=== PATIENT | female | born 1995 | race Caucasian/White ===

== ENCOUNTER 2023-12-09 07:54 | Emergency (ER) | payer BC, SELFPAY ==
[2023-12-09 07:58] VITALS: BP 172/104
[2023-12-09 08:28] VITALS: BMI 45.9
--- NOTE | 2023-12-09 08:39 | ED.GENMED ---
History of Present Illness
General
Chief Complaint: Breathing Problem
Source: patient
Time Seen by Provider: 12/09/23 08:22
Travel History
Have you had any contact with someone who has COVID-19?: No
Do you have any symptoms of coronavirus? Fever > 100 degrees, chills, cough, shortness of breath, sore throat, loss of taste or smell, muscle aches, or headache?: Yes
Symptoms:: see triage note
History of Present Illness
History of Present Illness:
28-year-old female with past medical history of asthma presenting to the emergency department for evaluation after she started with cold-like symptoms around 4 weeks ago, over the last 2 weeks has had persistent and lingering cough, difficulty
breathing, wheezing and generally feeling unwell. She notes that she is also right around 8 weeks and has an ultrasound scheduled with her RELIABILITY ENGINEER this coming Tuesday and was a little bit concerned about some abdominal discomfort she has
been having that is exacerbated when coughing. She denies any vaginal bleeding or discharge. She is G4, P2, 1 miscarriage. She denies any chest pain, diaphoresis, sputum production or any other concerns. She notes that she has gone through 2
albuterol inhalers in the last 3 weeks. Also of note, patient states her asthma is typically under control but a typical exacerbation is usually upper respiratory infections.
Past History
Past History
ED Past Medical History: Asthma and Psychiatric (Anxiety)
ED Past Surgical History: Orthopedic
Social History
Tobacco: Non-smoker
Alcohol: None
Drug: None
Personal:
Living: with family
Employment: Employed
Family History
Family History: CAD and Other (Noncontributory)
Review of Systems
Review of Systems
All Other Systems: ROS reviewed and negative except as documented in HPI and ROS
Phy Exam
Physical Exam
Physical Exam:
GENERAL: Alert , in no apparent distress but does appear slightly anxious
EYE: conjunctiva clear
NECK: Supple,
ENT: o/p clr, mmm.
CARDIAC: Borderline tachycardic rate and rhythm, no murmur
LUNGS: Diffuse inspiratory and expiratory wheezing posterior and anterior lung riley, no accessory muscle use, nontachypneic, no rales or rhonchi
NEUROLOGICAL: Alert and oriented
SKIN: Warm and dry, skin intact.
MUSCULOSKELETAL: well perfused.
PSYCH: Normal and appropriate interaction.
Scores
Heart Failure Risk
Heart Failure Risk Score: Not Applicable
Heart Score for Chest Pain Patients
STEMI patient?: Not applicable
Withdrawal Assessment of Alcohol
Withdrawal Assessment Completed?: Not applicable
Course
Orders/Labs/Results
Orders:
Orders
12/09/23 08:29
Albuterol Nebs [Ventolin Nebules] 2.5 mg INH R NOW STA
Ipratropium/Albuterol Sulfate [Duoneb] 3 ml INH R NOW ONE
Prednisone [Deltasone] 50 mg PO NOW STA
12/09/23 08:33
CR Chest - 2 Views Urgent
Comment:
Reason For Exam: persistent cough, URI
Vital Signs
Initial and Last Documented VS:
Initial Vital Signs
Temp Pulse Resp BP Pulse Ox
97.9 F 120 20 172/104 100
12/09/23 07:58 12/09/23 07:58 12/09/23 07:58 12/09/23 07:58 12/09/23 07:58
Last Documented Vital Signs
Temp Pulse Resp BP Pulse Ox
97.9 F 100 15 146/78 100
12/09/23 07:58 12/09/23 09:30 12/09/23 09:30 12/09/23 09:00 12/09/23 09:30
MDM/Problems Addressed
Differential Diagnosis Includes:
Asthma exacerbation, pneumonia, viral etiology
Secondary concern for ectopic although this is very unlikely and I suspect patient's abdominal discomfort is likely coming from a muscular etiology, less concern for spontaneous miscarriage
MDM/Problems Addressed:
28-year-old female presenting the emergency department for evaluation of shortness of breath and lingering cough in the setting of recent upper respiratory infection. Patient has been using her inhaler but has been needing it more frequently and
finished 2 inhalers over the last few weeks. Her exam today does reveal diffuse inspiratory and expiratory wheezing and I suspect asthma exacerbation as the likely cause of her symptoms. Patient has a secondary concern for possible miscarriage
despite lack of symptoms due to history of miscarriage. She has a scheduled ultrasound this coming Tuesday. Ultimately I have less concern for ectopic. I advised the patient that we would be treating her respiratory symptoms first since that is
what she came to the ER with and then we can deal with any related concerns.
Chronic conditions affecting care: Asthma
Acute Exacerbation and/or Progression of Chronic Illness: Asthma
*Radiology
Radiology exam reviewed: preliminary read by ED provider
*Pulse Oximetry
Patient hypoxic: no
*Dental Laboratory Technician Interpretation
Rate: tachycardiac
Rhythm: sinus
*Critical Care Note
Total Time (30-74mins, 75-104mins- exclusive of procedures): Not Applicable
Comment
Comment:
On reevaluation patient's wheezing is fully resolved. She does note significant symptomatic improvement as well. Chest x-ray pending. I did perform a bedside ultrasound which showed a pole and yolk sac/[facility]. I did advise patient that this
was not a diagnostic ultrasound as she is scheduled for this on Tuesday and would not be able to identify any specific complications.
Patient Management
Escalation/DeEscalation of care consider admission/obs:
On third reevaluation patient continues without any wheezing. She remains asymptomatic. Prescription for new albuterol inhaler and prednisone sent to pharmacy. Aware of return precautions. Patient has follow-up scheduled for this coming week
with her OBGYN.
ED Attending Note
-
Portions of this chart may have been created with voice recognition software.� Occasional wrong word or��sound alike� substitutions may have occurred due to the inherent limitations of voice recognition software.
Discharge Plan
Departure
Patient Disposition: Home (Routine Discharge)
Date of Disposition: 12/09/23
Time of Disposition: 11:14
Patient with high blood pressure during this ER visit?: Yes
Discharge Problem:
Asthma, URI (upper respiratory infection)
Instructions: Asthma, Adult (DC)
Prescriptions:
New
prednisone 20 mg tablet
40 mg PO DAILY 4 Days Qty: 8 0RF
albuterol sulfate 90 mcg/actuation HFA aerosol inhaler
2 puff inhalation Q6H PRN (Reason: shortness of breath or wheezing) Qty: 6.7 0RF
No Action
albuterol sulfate 1 PUFF HFA aerosol inhaler
1 puff inhalation R Q4HPRN PRN (Reason: prn)
pren vit comb.1-iron cb-FA-DSS 1 TAB tablet
1 tab PO DAILY
Calcium Adult (calcium phos) 1 EACH tablet,chewable
1 ea PO DAILY
ibuprofen 600 MG tablet
600 mg PO Q4HPRN PRN (Reason: moderate pain/cramps) 0RF
Referrals:
Esthetician/Skin Therapist-Samantha Chase CRNP [Family Provider] -
Interventions
Interventions:
*Risk Screen - Suicide Last Done: 12/09/23 08:28
*General Assessment Last Done: 12/09/23 07:58
*Neglect/Abuse Screening Last Done: 12/09/23 08:28
ED- Fall Risk Assessment Last Done: 12/09/23 08:28
*ED COVID-19 Vaccine History Last Done: 12/09/23 07:58
*Nursing Disposition Last Done: 12/09/23 11:22
ED- Cardiac Assessment Last Done: 12/09/23 08:28
ED- Pulmonary Assessment Last Done: 12/09/23 08:28
Discharge Date and Time
Discharge Date/Time: 12/09/23 11:22
[2023-12-09] MEDS: DELTASONE 50 MG PO (08:40)
[2023-12-09] MEDS: DUONEB 3 ML INH (08:40)
[2023-12-09] MEDS: VENTOLIN NEBULES 2.5 MG INH (08:40)
[2023-12-09 08:43] VITALS: BP 148/97
[2023-12-09 09:00] VITALS: BP 146/78
== END 2023-12-09 11:22 | disposition home or self-care (01) ==
LOC: EMR 07:54
PROVIDERS: EMERGENCY PHYSICIAN Emergency Medicine; FAMILY PHYSICIAN Nurse Practitioner Family
DX: O99.511 Diseases of the respiratory system complicating pregnancy, first trimester (principal); J45.901 Unspecified asthma with (acute) exacerbation; J06.9 Acute upper respiratory infection, unspecified; R03.0 Elevated blood-pressure reading, without diagnosis of hypertension; Z3A.08 8 weeks gestation of pregnancy
CPT/HCPCS: 99284; 94640; 71046

== ENCOUNTER 2024-01-07 07:35 | Emergency (ER) | payer BC, SELFPAY ==
[2024-01-07 07:42] VITALS: BP 159/99
--- NOTE | 2024-01-07 09:10 | ED.GENMED ---
History of Present Illness
General
Chief Complaint: Problems
Time Seen by Provider: 01/07/24 09:04
Travel History
Have you had any contact with someone who has COVID-19?: No
Do you have any symptoms of coronavirus? Fever > 100 degrees, chills, cough, shortness of breath, sore throat, loss of taste or smell, muscle aches, or headache?: No
History of Present Illness
History of Present Illness:
28-year-old female, currently 12 weeks gestational age, presents the emergency department for evaluation of a heavy 'domínguez' of vaginal bleeding and cramping that developed earlier this morning. Symptoms have since subsided. Denies any
associated fever, chills, sweats, nausea, vomiting, or urinary tract voiding symptoms. 1 prior first trimester miscarriage, 2 living children, uncomplicated pregnancies. Does not take any blood thinners. Did have confirmatory ultrasound several
weeks ago
Past History
Past History
ED Past Medical History: Asthma and Psychiatric (Anxiety)
ED Past Surgical History: Orthopedic
Social History
Tobacco: Non-smoker
Alcohol: None
Drug: None
Personal:
Living: with family
Employment: Employed
Family History
Family History: CAD and Other (Noncontributory)
Review of Systems
Review of Systems
Allergies reviewed?: Yes
All Other Systems: ROS reviewed and negative except as documented in HPI and ROS
Phy Exam
Physical Exam
Physical Exam:
GEN: Well appearing, NAD, WDWN
HEENT: Oral mucosa moist, no scleral icterus
Cardiac: Regular rate
Lung: No respiratory distress, no tachypnea
MSK: No gross deformity or injuries
Skin: Good color, no pallor or jaundice, no rashes
Neuro: AO x3, moves all extremities freely
Psych: Calm, cooperative
Course
Orders/Labs/Results
Orders:
Orders
01/07/24 09:09
US 1st Trimester Urgent
Reason For Exam: 1st trimester bleeding
01/07/24 09:11
Beta HCG Quantitative Urgent
Is this a screen?: No
Complete Blood Count/With Diff Urgent
Comprehensive Metabolic Panel Urgent
Abnormal Lab Results
01/07/24
09:11
WBC 11.2 H 10^3/uL
(4.8-10.8)
MCV 77.2 L fL
(81.0-99.0)
MCH 26.3 L pg
(27.0-31.0)
RDW 14.9 H %
(11.5-14.5)
Absolute Neuts (auto) 7.8 H 10^3/uL
(1.4-6.5)
Lymphocytes % 19.5 L %
(20.5-51.1)
Carbon Dioxide 21 L mmol/L
(22-30)
Creatinine 0.5 L mg/dL
(0.6-1.0)
01/07/24 09:11
01/07/24 09:11
Vital Signs
Initial and Last Documented VS:
Initial Vital Signs
Temp Pulse Resp BP Pulse Ox
98.5 F 116 16 159/99 99
01/07/24 07:42 01/07/24 07:42 01/07/24 07:42 01/07/24 07:42 01/07/24 07:42
Last Documented Vital Signs
Temp Pulse Resp BP Pulse Ox
97.9 F 105 18 143/89 98
01/07/24 12:57 01/07/24 12:57 01/07/24 12:57 01/07/24 12:57 01/07/24 12:57
Information
Weeks gestation: Weeks: (12)
Location: Location: ([facility])
MDM/Problems Addressed
MDM/Problems Addressed:
Ultrasound is unremarkable, good heart tones and live viable is identified. Given that there are no alternative etiologies to bleeding such as a subchorionic hemorrhage, cannot definitively rule out an impending miscarriage at this time.
She is Rh+ historically thus will not need RhoGAM. Outpatient OBGYN follow-up is advised
*Critical Care Note
Total Time (30-74mins, 75-104mins- exclusive of procedures): Not Applicable
ED Attending Note
-
Portions of this chart may have been created with voice recognition software.� Occasional wrong word or��sound alike� substitutions may have occurred due to the inherent limitations of voice recognition software.
Discharge Plan
Departure
Patient Disposition: Home (Routine Discharge)
Date of Disposition: 01/07/24
Time of Disposition: 12:23
Patient with high blood pressure during this ER visit?: No
Discharge Problem:
Miscarriage, threatened, early
Instructions: Threatened Miscarriage (DC)
Prescriptions:
No Action
albuterol sulfate 1 PUFF HFA aerosol inhaler
1 puff inhalation R Q4HPRN PRN (Reason: prn)
pren vit comb.1-iron cb-FA-DSS 1 TAB tablet
1 tab PO DAILY
Calcium Adult (calcium phos) 1 EACH tablet,chewable
1 ea PO DAILY
ibuprofen 600 MG tablet
600 mg PO Q4HPRN PRN (Reason: moderate pain/cramps) 0RF
prednisone 20 mg tablet
40 mg PO DAILY 4 Days Qty: 8 0RF
albuterol sulfate 90 mcg/actuation HFA aerosol inhaler
2 puff inhalation Q6H PRN (Reason: shortness of breath or wheezing) Qty: 6.7 0RF
Referrals:
Tierney York DO [Active] - Call in 1-3 days for appt
Daja Woo CRNP [Family Provider] -
Interventions
Interventions:
*Risk Screen - Suicide Last Done: 01/07/24 07:42
*General Assessment Last Done: 01/07/24 07:42
*Neglect/Abuse Screening Last Done: 01/07/24 07:42
*ED COVID-19 Vaccine History Last Done: 01/07/24 12:52
*Nursing Disposition Last Done: 01/07/24 12:57
ED-Female Genitourinary Assessment Last Done: 01/07/24 12:55
[2024-01-07 09:19] LABS: % Basophils 0.8 % (0-2); % Eosinophils 4.9 % (0-6); % Immature Granulocytes 0.4 % (0-0.5); % Lymphocytes 19.5 % (20.5-51.1); % Monocytes 4.3 % (1.7-9.3); % Neutrophils 70.1 % (42.2-75.2); Absolute Basophils 0.1 10^3/uL (0-0.2); Absolute Eosinophils 0.6 10^3/uL (0-0.7); Absolute Lymphocytes 2.2 10^3/uL (1.2-3.4); Absolute Monocytes 0.5 10^3/uL (0.1-0.6); Absolute Neutrophils 7.8 10^3/uL (1.4-6.5); Hematocrit 37.5 % (37.0-47.0); Hemoglobin 12.8 g/dL (12.0-16.0); Mean Corp Hgb Conc. 34.1 g/dL (33.0-37.0); Mean Corpuscular Hgb 26.3 pg (27.0-31.0); Mean Corpuscular Volume 77.2 fL (81.0-99.0); Mean Platelet Volume 10.1 fL (7.4-10.4); Nucleated Red Blood Cells % 0 %; Platelet Count 349 10^3/uL (130-400); Red Blood Cell Count 4.86 10^6/uL (4.20-5.40); Red Cell Dist. Width 14.9 % (11.5-14.5); White Blood Cell Count 11.2 10^3/uL (4.8-10.8)
[2024-01-07 09:33] LABS: ALT (SGPT) 14 U/L (0-35); AST (SGOT) 18 U/L (14-36); Albumin 3.8 g/dl (3.5-5.0); Alkaline Phosphatase 89 U/L (38-126); Blood Urea Nitrogen 7 mg/dl (7-17); Calcium 8.8 mg/dl (8.4-10.2); Carbon Dioxide 21 mmol/L (22-30); Chloride 107 mmol/L (98-107); Glucose 97 mg/dl (70-99); Potassium 4.2 mmol/L (3.5-5.1); Sodium 135 mmol/L (135-145); Total Bilirubin 0.5 mg/dl (0.2-1.3); Total Protein 6.8 g/dl (6.3-8.2); eGFR > 60.00
[2024-01-07 12:57] VITALS: BP 143/89
== END 2024-01-07 12:57 | disposition home or self-care (01) ==
LOC: EMR 07:35
PROVIDERS: Physician Assistant; EMERGENCY PHYSICIAN Emergency Medicine; FAMILY PHYSICIAN Nurse Practitioner Primary Care
DX: O20.0 Threatened abortion (principal); O20.9 Hemorrhage in early pregnancy, unspecified; Z3A.11 11 weeks gestation of pregnancy
CPT/HCPCS: 99284; 76801; 80053; 84702; 85025

== ENCOUNTER → 2024-01-09 10:35 | Outpatient (REF) | payer BC, SELFPAY | LOC: PNTC 10:35 | PROVIDERS: ATTENDING PHYSICIAN Obstetrics & Gynecology | DX: Z36.0 Encounter for antenatal screening for chromosomal anomalies (principal); Z36.82 Encounter for antenatal screening for nuchal translucency | CPT/HCPCS: 76801; 76813 ==

== ENCOUNTER → 2024-02-06 14:33 | Outpatient (REF) | payer BC, SELFPAY | LOC: PNTC 14:33 | PROVIDERS: ATTENDING PHYSICIAN Obstetrics & Gynecology | DX: O99.210 Obesity complicating pregnancy, unspecified trimester (principal) | CPT/HCPCS: 76805 ==

== ENCOUNTER → 2024-03-05 14:39 | Outpatient (REF) | payer BC, SELFPAY | LOC: PNTC 14:39 | PROVIDERS: ATTENDING PHYSICIAN Obstetrics & Gynecology | DX: O99.210 Obesity complicating pregnancy, unspecified trimester (principal) | CPT/HCPCS: 76811 ==

== ENCOUNTER → 2024-04-02 14:43 | Outpatient (REF) | payer BC, SELFPAY | LOC: PNTC 14:43 | PROVIDERS: ATTENDING PHYSICIAN Obstetrics & Gynecology | DX: O99.210 Obesity complicating pregnancy, unspecified trimester (principal) | CPT/HCPCS: 76816 ==

== ENCOUNTER → 2024-04-30 14:42 | Outpatient (REF) | payer OTHER, SELFPAY | LOC: PNTC 14:42 | PROVIDERS: ATTENDING PHYSICIAN Obstetrics & Gynecology | DX: O99.210 Obesity complicating pregnancy, unspecified trimester (principal) | CPT/HCPCS: 76816 ==

== ENCOUNTER 2024-05-23 17:14 | Observation (INO) | payer OTHER, SELFPAY ==
[2024-05-23 17:39] VITALS: BP 120/68
[2024-05-23 18:16] LABS: Hematocrit 35.4 % (37.0-47.0); Hemoglobin 12.3 g/dL (12.0-16.0); Mean Corp Hgb Conc. 34.7 g/dL (33.0-37.0); Mean Corpuscular Hgb 27.8 pg (27.0-31.0); Mean Corpuscular Volume 80.1 fL (81.0-99.0); Platelet Count 325 10^3/uL (130-400); Red Blood Cell Count 4.42 10^6/uL (4.20-5.40); Red Cell Dist. Width 14.5 % (11.5-14.5); White Blood Cell Count 12.9 10^3/uL (4.8-10.8)
[2024-05-23 18:17] LABS: Urine Albumin Negative (Neg - Trace); Urine Bilirubin Negative (Negative); Urine Character Slightly Cloudy (Clear); Urine Color Yellow; Urine Glucose Negative (Negative); Urine Ketone Negative (Negative); Urine Leukocyte 1+ (Negative); Urine Nitrite Negative (Negative); Urine Occult Blood Trace (Negative); Urine Urobilinogen Negative (Neg - 1+)
[2024-05-23 18:32] LABS: Urine Red Blood Cell 0-2 /HPF (0-2); Urine Yeast Moderate (Negative)
[2024-05-23 18:36] LABS: ALT (SGPT) 14 U/L (0-35); AST (SGOT) 18 U/L (14-36); Albumin 3.6 g/dl (3.5-5.0); Alkaline Phosphatase 128 U/L (38-126); Blood Urea Nitrogen 8 mg/dl (7-17); Calcium 9.3 mg/dl (8.4-10.2); Carbon Dioxide 22 mmol/L (22-30); Chloride 107 mmol/L (98-107); Glucose 81 mg/dl (70-99); Potassium 4.4 mmol/L (3.5-5.1); Sodium 136 mmol/L (135-145); Total Bilirubin 0.3 mg/dl (0.2-1.3); Total Protein 6.4 g/dl (6.3-8.2); Uric Acid 3.8 mg/dl (2.5-6.2); eGFR > 60.00
[2024-05-23 18:36] LABS: Protein/creatinine Ratio 0.1; Urine Protein 10 mg/dl
== END 2024-05-23 19:21 | disposition home or self-care (01) ==
LOC: LDRP 17:14
PROVIDERS: ADMITTING PHYSICIAN Obstetrics & Gynecology
DX: O13.3 Gestational [pregnancy-induced] hypertension without significant proteinuria, third trimester (principal); R22.42 Localized swelling, mass and lump, left lower limb; J45.909 Unspecified asthma, uncomplicated; O99.513 Diseases of the respiratory system complicating pregnancy, third trimester; Z3A.31 31 weeks gestation of pregnancy; R51.9 Headache, unspecified; O99.213 Obesity complicating pregnancy, third trimester; O98.313 Other infections with a predominantly sexual mode of transmission complicating pregnancy, third trimester; A56.8 Sexually transmitted chlamydial infection of other sites
CPT/HCPCS: 59025; 80053; 81003; 81015; 82570; 84156; 84550; 85027; 87086; G0378

== ENCOUNTER 2024-05-25 18:48 | Observation (INO) | payer OTHER, SELFPAY ==
[2024-05-25 19:08] VITALS: BP 113/73; BMI 46.6
== END 2024-05-25 19:58 | disposition home or self-care (01) ==
LOC: LDRP 18:48
PROVIDERS: ADMITTING PHYSICIAN Obstetrics & Gynecology; FAMILY PHYSICIAN Obstetrics & Gynecology
DX: O47.03 False labor before 37 completed weeks of gestation, third trimester (principal); Z3A.31 31 weeks gestation of pregnancy; O99.343 Other mental disorders complicating pregnancy, third trimester; F41.9 Anxiety disorder, unspecified
CPT/HCPCS: G0378

== ENCOUNTER → 2024-05-28 14:43 | Outpatient (REF) | payer OTHER, SELFPAY | LOC: PNTC 14:43 | PROVIDERS: ATTENDING PHYSICIAN Obstetrics & Gynecology | DX: O99.210 Obesity complicating pregnancy, unspecified trimester (principal) | CPT/HCPCS: 76816 ==

== ENCOUNTER 2024-06-11 17:40 | Inpatient (IN) | payer OTHER, SELFPAY ==
[2024-06-11 15:54] VITALS: BP 134/75; BMI 44.9
[2024-06-11 16:33] LABS: Protein/creatinine Ratio 0.1; Urine Protein 8 mg/dl
[2024-06-11 16:59] LABS: ALT (SGPT) 72 U/L (0-35); AST (SGOT) 104 U/L (14-36); Albumin 3.5 g/dl (3.5-5.0); Alkaline Phosphatase 185 U/L (38-126); Blood Urea Nitrogen 6 mg/dl (7-17); Calcium 9.1 mg/dl (8.4-10.2); Carbon Dioxide 18 mmol/L (22-30); Chloride 106 mmol/L (98-107); Estimated Creatinine Clearance > 125 ml/min; Glucose 84 mg/dl (70-99); Potassium 4.2 mmol/L (3.5-5.1); Sodium 137 mmol/L (135-145); Total Bilirubin 2.6 mg/dl (0.2-1.3); Total Protein 6.3 g/dl (6.3-8.2); eGFR > 60.00
[2024-06-11 17:20] LABS: Hematocrit 35.4 % (37.0-47.0); Hemoglobin 12.3 g/dL (12.0-16.0); Mean Corp Hgb Conc. 34.7 g/dL (33.0-37.0); Mean Corpuscular Hgb 28.1 pg (27.0-31.0); Mean Platelet Volume 10.2 fL (7.4-10.4); Platelet Count 316 10^3/uL (130-400); Red Blood Cell Count 4.37 10^6/uL (4.20-5.40); Red Cell Dist. Width 14.1 % (11.5-14.5); White Blood Cell Count 11.7 10^3/uL (4.8-10.8)
[2024-06-11 17:47] VITALS: BP 138/82; BMI 49.8
[2024-06-11] MEDS: CELESTONE SOLUSPAN 2 MG IM (19:36)
[2024-06-11] MEDS: MAGNESIUM SULFATE 100 IV (19:40)
[2024-06-11] MEDS: LR 1000 IV (19:40)
[2024-06-11] MEDS: CYTOTEC 25 MICROGRAM VAG (19:45)
[2024-06-11] MEDS: MAGNESIUM SULFATE 40 GRAM 1000 IV (20:01)
--- NOTE | 2024-06-11 22:00 | CON.NEO ---
Consultation
-
Date/Time Consultation Requested: 06/11 2030
Date/Time Consultation Performed: 06/11 2200
Requesting Provider: Dr Rucker
Performing Provider: Dr Pearson
Reason for Consultation: induction at 34 wks
Consultation - Neonatology
Maternal Labs
Blood Type: A Positive
Antibody Screen: Negative
RPR: Nonreactive
Rubella: Immune
Hep B S Ag: Negative
Hep C: Negative
HIV: Nonreactive
Group B Strep: Unknown
Chlamydia/GC: Other (chlam positive 12/10 with negative FLORY 01/07)
Consult
mom 28 year old with previous term pregnancies without any complications. This significant for elevated BP , seen couple wks ago with borderline elevated BP . today went to for regular check up and noted to have elevated LFTs
and BP admitted with diagnosis of PIH with severe features. Induction started with cytotec . Mom is receiving Mag infusion for elevated BP. has received one dose of Beta on admission to be followed with second dose. have requested to give in 12 hrs
instead 24 hr
Points discussed at consult:
- Management at delivery including the possibility of CPAP/intubation/surfactant discussed
- Respiratory: RDS possibility with possibility of worsening for 24-48 hrs, management including CPAP/surfactant/ventilator support may be required
- Nutrition: Hypoglycemia, need for IV fluids, gradual feed advance, Gavage feeding, importance of colostrum feeding, initiation of expression of colostrum within 3-4 hours, availability of donor milk, safety fo donor milk etc. were discussed.
Fortification with pros and Cons discussed with the family. at 34 wks likely smith of requiring 22 calories .
- Procedures: Intubation, CPAP, IV placement, blood tests, umbilical arterial or venous lines, gavage feedings were discussed
- CVS: possibility of PDA not discussed in detail at this time
- MEN'S GARMENT FITTER: Rare possibility of IVH and need for head US, grading of IVH and intermodal dispatcher effects of Grade III/IV although extremely rare at >32 weeks were discussed
- Jaundice possibility and need for phototherapy discussed
- Family Centered Care: Discussed FCC with emphasis on parental participation during sign off and during management rounds and is encouraged. Availability of tito eyes camera also discussed
-
Mom and Dad were given the opportunity to ask questions throughout and open invitation to call if any questions come as they absorb all the information given so far.
Face to Face Time
Total Zdox-is-Qgnk Time (in Minutes): 45 min
Truck Rental Service Attendant
[2024-06-12] MEDS: CYTOTEC 50 MICROGRAM PO ×3 (00:25→08:00)
[2024-06-12 00:51] LABS: Hematocrit 35.4 % (37.0-47.0); Hemoglobin 12.2 g/dL (12.0-16.0); Mean Corp Hgb Conc. 34.5 g/dL (33.0-37.0); Mean Corpuscular Volume 81.2 fL (81.0-99.0); Mean Platelet Volume 10.7 fL (7.4-10.4); Platelet Count 318 10^3/uL (130-400); Red Blood Cell Count 4.36 10^6/uL (4.20-5.40); Red Cell Dist. Width 14.2 % (11.5-14.5)
[2024-06-12 00:54] LABS: ALT (SGPT) 82 U/L (0-35); AST (SGOT) 118 U/L (14-36); Albumin 3.1 g/dl (3.5-5.0); Alkaline Phosphatase 214 U/L (38-126); Blood Urea Nitrogen 6 mg/dl (7-17); Calcium 7.6 mg/dl (8.4-10.2); Carbon Dioxide 19 mmol/L (22-30); Chloride 108 mmol/L (98-107); Estimated Creatinine Clearance > 125 ml/min; Glucose 141 mg/dl (70-99); INR 1.05; PT 13.6 Sec (11.4-14.6); Potassium 4.1 mmol/L (3.5-5.1); Sodium 138 mmol/L (135-145); Total Bilirubin 1.6 mg/dl (0.2-1.3); Total Protein 5.8 g/dl (6.3-8.2); eGFR > 60.00
[2024-06-12 00:55] LABS: APTT 27.9 Sec (23.4-35.0)
[2024-06-12] MEDS: PENICILLIN 110 UNITS IV (03:23)
[2024-06-12] MEDS: LR 1000 IV ×2 (07:00→21:05)
[2024-06-12] MEDS: PENICILLIN 55 UNITS IV ×3 (07:20→15:35)
[2024-06-12] MEDS: FENTANYL/BUPIVACAINE 100 EPIDURAL (07:21)
[2024-06-12] MEDS: PRENATAL PLUS 1 TABLET PO (08:00)
[2024-06-12] MEDS: CELESTONE SOLUSPAN 2 MG IM (08:03)
[2024-06-12 08:26] LABS: Hematocrit 35.5 % (37.0-47.0); Hemoglobin 12.5 g/dL (12.0-16.0); Mean Corp Hgb Conc. 35.2 g/dL (33.0-37.0); Mean Corpuscular Volume 79.6 fL (81.0-99.0); Mean Platelet Volume 10.5 fL (7.4-10.4); Platelet Count 341 10^3/uL (130-400); Red Blood Cell Count 4.46 10^6/uL (4.20-5.40); Red Cell Dist. Width 14.4 % (11.5-14.5); White Blood Cell Count 13.4 10^3/uL (4.8-10.8)
[2024-06-12 08:59] LABS: ALT (SGPT) 85 U/L (0-35); AST (SGOT) 93 U/L (14-36); Albumin 3.5 g/dl (3.5-5.0); Alkaline Phosphatase 227 U/L (38-126); Blood Urea Nitrogen 6 mg/dl (7-17); Calcium 7.8 mg/dl (8.4-10.2); Carbon Dioxide 15 mmol/L (22-30); Chloride 105 mmol/L (98-107); Estimated Creatinine Clearance > 125 ml/min; Glucose 128 mg/dl (70-99); Magnesium 5.1 mg/dl (1.6-2.3); Potassium 4.5 mmol/L (3.5-5.1); Sodium 134 mmol/L (135-145); Total Protein 6.3 g/dl (6.3-8.2); eGFR > 60.00
[2024-06-12] MEDS: CYTOTEC PO ×2 (12:00→15:37)
[2024-06-12] MEDS: PITOCIN 30 UNITS/NSS 500 ML IV ×2 (12:15→19:11)
[2024-06-12] MEDS: MAGNESIUM SULFATE 40 GRAM 1000 IV (13:53)
[2024-06-12] MEDS: MOTRIN 600 MG PO (20:27)
[2024-06-12] MEDS: MAGNESIUM SULFATE 40 GRAM IV (21:09)
[2024-06-12] MEDS: LR IV (21:11)
[2024-06-13] MEDS: TYLENOL 650 MG PO ×5 (01:26→22:19)
[2024-06-13] MEDS: MOTRIN 600 MG PO ×4 (03:20→22:18)
[2024-06-13] MEDS: SENOKOT-S 1 TABLET PO (05:42)
[2024-06-13] MEDS: ProAIR HFA INHALER 2 PUFF INH (06:00)
[2024-06-13 06:17] LABS: Hematocrit 30.9 % (37.0-47.0); Hemoglobin 10.7 g/dL (12.0-16.0); Mean Corp Hgb Conc. 34.6 g/dL (33.0-37.0); Mean Corpuscular Hgb 27.4 pg (27.0-31.0); Mean Platelet Volume 10.3 fL (7.4-10.4); Platelet Count 328 10^3/uL (130-400); Red Blood Cell Count 3.91 10^6/uL (4.20-5.40); Red Cell Dist. Width 14.7 % (11.5-14.5); White Blood Cell Count 19.9 10^3/uL (4.8-10.8)
[2024-06-13 07:04] LABS: ALT (SGPT) 68 U/L (0-35); AST (SGOT) 52 U/L (14-36); Alkaline Phosphatase 172 U/L (38-126); Blood Urea Nitrogen 9 mg/dl (7-17); Calcium 6.9 mg/dl (8.4-10.2); Carbon Dioxide 18 mmol/L (22-30); Chloride 106 mmol/L (98-107); Estimated Creatinine Clearance > 125 ml/min; Glucose 131 mg/dl (70-99); Magnesium 6.1 mg/dl (1.6-2.3); Potassium 4.3 mmol/L (3.5-5.1); Sodium 135 mmol/L (135-145); Total Bilirubin 0.5 mg/dl (0.2-1.3); Total Protein 5.5 g/dl (6.3-8.2); eGFR > 60.00
[2024-06-13] MEDS: PRENATAL PLUS 1 TABLET PO (08:28)
[2024-06-13] MEDS: MAGNESIUM SULFATE 40 GRAM 1000 IV (08:54)
[2024-06-13] MEDS: LR 1000 IV (11:55)
[2024-06-14 03:51] LABS: Hematocrit 30.9 % (37.0-47.0); Hemoglobin 10.5 g/dL (12.0-16.0); Mean Corpuscular Hgb 27.4 pg (27.0-31.0); Mean Corpuscular Volume 80.7 fL (81.0-99.0); Mean Platelet Volume 10.2 fL (7.4-10.4); Platelet Count 304 10^3/uL (130-400); Red Blood Cell Count 3.83 10^6/uL (4.20-5.40); White Blood Cell Count 13.4 10^3/uL (4.8-10.8)
[2024-06-14 04:15] LABS: ALT (SGPT) 47 U/L (0-35); AST (SGOT) 25 U/L (14-36); Albumin 2.9 g/dl (3.5-5.0); Alkaline Phosphatase 132 U/L (38-126); Blood Urea Nitrogen 11 mg/dl (7-17); Calcium 7.9 mg/dl (8.4-10.2); Carbon Dioxide 23 mmol/L (22-30); Chloride 109 mmol/L (98-107); Estimated Creatinine Clearance > 125 ml/min; Glucose 101 mg/dl (70-99); Potassium 4.2 mmol/L (3.5-5.1); Sodium 141 mmol/L (135-145); Total Bilirubin 0.3 mg/dl (0.2-1.3); Total Protein 5.5 g/dl (6.3-8.2); eGFR > 60.00
[2024-06-14] MEDS: MOTRIN 600 MG PO ×3 (04:18→19:59)
[2024-06-14] MEDS: TYLENOL 650 MG PO ×3 (04:18→20:00)
[2024-06-14] MEDS: PRENATAL PLUS 1 TABLET PO (07:54)
[2024-06-14] MEDS: SENOKOT-S 1 TABLET PO (07:54)
--- NOTE | 2024-06-14 08:06 | CON.NEURO4 ---
Addendum entered and electronically signed by Raeann Garcia DO 06/14/24 18:36:
Studies reviewed.
I have personally examined the patient. I agree with the PHARMACY COORDINATOR's Note.
My addenda: 28 year-old female with bifrontal and bitemporal headache with pulsatile tinnitus after epidural attempt with dural puncture; headache just after giving . It was severe and debilitating. I saw her after her blood patch and her
headache is now nearly resolved, '<10.' Exam is nonfocal. MRI brain c/w spontaneous intracranial hypotension; MRI/MRV otherwise negative. Continue Tylenol/Motrin PRN, IVF. Neurology is signing off. Please call with further questions.
Original Note:
Consultation - Neurology 4
-
CONSULTING PHYSICIAN: Raeann Garcia DO
REFERRING PHYSICIAN: DIRECTOR OF STAFF DEVELOPMENT/Dr. York
DICTATED BY: CARMEN Smith
DATE/TIME OF REQUEST: 06/14/24
DATE/TIME OF CONSULTATION: 06/14/24
Reason for Consultation: Headache
History of Present Illness:
This is a 28-year-old left-handed PPD2 female who has presented to the hospital on 06/11/24 for induction due to pre-eclampsia with elevated liver enzymes. Epidural attempt was made two mornings ago on 06/12/24, dura was punctured on the first
attempt, so intrathecal cath was utilized. That night (06/12/24) patient reports developing a headache behind bilateral eyes that that transitioned to bitemporal and radiated down both sides of her neck. Initially her headache was a 2-3/10 but
progressed to a 7-8/10. She also reports hearing a 'whooshing' sound in bilateral ears and hearing was muffled. She notes photophobia but no overt phonophobia, nausea, or vomiting. Sometimes after sleeping she would wake up and notice relief of her
headache, but this was not consistent. She denies noticing any worsening of her headache with being upright. MRI brain was obtained this morning and is suggestive of intracranial hypotension. Patient received a blood patch in IR later this morning
and reports a significant improvement in her symptoms since the procedure. Currently, her discomfort is a 4/10. She is now sitting up, eating, and conversant which her sister says is a drastic improvement from earlier today. Patient's blood pressure
has been well-controlled since delivery. She completed a magnesium infusion last evening.
She does report a history of migraine headaches without aura in her teenage years, not associated with her menses. She used to take Excedrin migraine with relief of her symptoms. She has never seen a neurologist or taken any prescription migraine
medications. Her migraines spontaneously resolved in her 20's. She does not having mild headaches during her once she was diagnosed with preeclampsia, but those headaches were very different from her headache this week. She also notes head
trauma at work twice in the past. With each event she was bending over and stood up, hitting the back of her head on a metal object. The first event was in 2011 and she notes having a mild concussion symptoms. She had a CT head at at that time
that was unremarkable. The second episode of hitting her head was in the past couple of years and she did not have any concussion symptoms associated with that event.
Past Medical History: Migraine without aura in her teens, anxiety, depression, asthma, obesity
Surgical History: Carpal tunnel release right side
Family History: Sister- migraines
Social History: Denies tobacco, alcohol, and illicit drug use.
Allergies: No known allergies.
Home Medications: See below.
Review of Symptoms:
Patient denies any fever, headache, chest pain, shortness of breath, GI or symptoms.
�Per the HPI.�All systems are reviewed negative except above.
Physical Exam:
The patient is afebrile, abdomen is nondistended, breathing is unlabored, skin is warm and dry, no edema.
Neurologic Examination:
The patient is awake, alert and oriented x 3. She is able to follow commands and answer questions appropriately. There is no aphasia or dysarthria. On cranial nerve assessment, pupils are 3 mm bilateral, round and reactive to light and
accommodation. Visual riley are full. Extraocular movements are intact. Facial sensations are intact and bilaterally symmetrical, there is no facial asymmetry. Hearing is intact bilaterally to normal conversation volume. Tongue palate and uvula are
midline. Sternocleidomastoid strengths are full bilaterally. Motor strengths are 5/5 bilateral upper and lower extremities on medical research S[place]lin scale. There is no drift or involuntary movement noted. Deep tendon reflexes are 1+ bilateral
upper and lower extremities and Babinski is absent bilaterally. Sensations of touch, temperature and vibration are intact and bilaterally symmetrical. There was no extinction noted on double simultaneous stimulation. Coordination is intact by finger
to nose bilaterally.
Lab Results: See below.
Neuro Imaging:
1. MRI Brain 06/14/24: MR imaging features suggesting spontaneous intracranial hypotension in the proper clinical setting. Pertinent negatives include absence of imaging features to suggest other post headache etiologies, such as cerebral or
dural venous thrombosis, segmental vasoconstriction of the cerebral arteries ( reversible cerebral vasoconstriction syndrome), or posterior reversible encephalopathy syndrome (PRES).
2. MRA head/neck 06/14/24: No significant carotid plaque formation or hemodynamically significant stenosis, bilaterally. No occlusion or dissection.
Differentials for the patient's presentation include:
1. Intractable headache likely due to intracranial hypotension in the setting of punctured dura during epidural attempt. Symptoms improving after blood patch procedure.
2. MRA/MRI brain negative for hemorrhage and venous sinus thrombosis.
Patient has the following risk factors for their symptoms: Recent epidural, recent , PIH
Recommendations:
-Supportive care; encourage fluids, PRN Tylenol, daily caffeine, rest.
-Symptoms should gradually improve over the next few days.
Discussed patient care with: Dr. Garcia, the patient
Vital Signs and Labs
-
Vital Signs and Labs:
Vital Signs
Temp Pulse Resp BP
99.1 F 106 20 138/82
06/11/24 17:47 06/11/24 19:20 06/11/24 19:20 06/11/24 17:47
Lab Results
06/14/24 03:42
06/14/24 03:42
PT 13.6 Sec (11.4-14.6) 06/12/24 00:21
INR 1.05 06/12/24 00:21
APTT 27.9 Sec (23.4-35.0) 06/12/24 00:21
Sodium 141 mmol/L (135-145) 06/14/24 03:42
Potassium 4.2 mmol/L (3.5-5.1) 06/14/24 03:42
BUN 11 mg/dl (7-17) 06/14/24 03:42
Glucose 101 mg/dl (70-99) H 06/14/24 03:42
Calcium 7.9 mg/dl (8.4-10.2) L 06/14/24 03:42
Medications
-
Active Medications
Generic Name Dose Route Start Last Admin
Trade Name Freq PRN Reason Stop Dose Admin
Acetaminophen 650 mg 06/12/24 19:51 06/14/24 04:18
Acetaminophen 325 Mg Tablet PO 07/10/24 19:50 650 mg
Q4HPRN PRN Administration
mild pain
Albuterol 2 puff 06/11/24 18:57 06/13/24 06:00
Albuterol Hfa [90 Mcg/Dose] Inhaler INH 2 puff
R Q6HPRN PRN Administration
shortness of breath or wheezin
Protocol
Calcium Carbonate 2 tablet 06/12/24 19:51
Calcium Carbonate 500 Mg (Regular-Strength) Chew Tablet PO 07/10/24 19:50
Q6HPRN PRN
indigestion
Calcium Gluconate 1,000 mg 06/11/24 18:55
Calcium Gluconate 10% (100 Mg/Ml) 10 Ml Vial IV 07/09/24 18:54
PRN PRN
mag toxicity or resp rate <12
Oxytocin/Sodium Chloride 30 unit in 500 mls @ 0 mls/hr 06/12/24 19:51
Pitocin 30 Units/Nss 500 Ml IV 07/10/24 19:50
PRN PRN
excessive bleeding
As Directed
Ibuprofen 600 mg 06/12/24 19:51 06/14/24 04:18
Ibuprofen 600 Mg Tablet PO 07/10/24 19:50 600 mg
Q6HPRN PRN Administration
moderate pain/cramps
Methylergonovine Maleate 0.2 mg 06/12/24 19:51
Methergine (0.2 Mg/Ml) 1 Ml Injection IM
ONCE PRN PRN
excessive bleeding
Prenat Multivit/[place]/Iron/Folic Ac 1 tablet 06/12/24 08:00 06/14/24 07:54
Multiple Vitamin/Minerals With Iron Tablet PO 07/10/24 07:59 1 tablet
DAILY DOMI Administration
Senna/Docusate Sodium 1 tablet 06/12/24 19:51 06/14/24 07:54
Docusate W/Senna (Rita-Colace) Tablet PO 07/10/24 19:50 1 tablet
DAILYPRN PRN Administration
constipation
Sodium Chloride 0 flush 06/12/24 20:00
Sodium Chloride 0.9% (Flush) Syringe IV 07/10/24 19:59
PER PROTOCOL DOMI
Home Medications
�Medication �Instructions �Recorded
pren vit comb.1-iron cb-FA-DSS 90 1 tab PO DAILY Supplement 01/18/19
mg-1 mg-50 mg tablet
albuterol sulfate 90 mcg/actuation 2 puff inhalation Q6H PRN 12/09/23
aerosol inhaler shortness of breath or wheezing
#6.7 grams
--- NOTE | 2024-06-14 10:50 | SUR.PHASEI ---
Received pt from [facility] in wheelchair, pt assisted to stretcher, placed on monitor. Warm blanket applied. Pt updated on plan of care. Pt verbalized understanding. Resting. Will continue to monitor.
[2024-06-14 12:20] VITALS: BP 129/82; BP_SYST 18
[2024-06-14 12:35] VITALS: BP 128/73; BP_SYST 18
[2024-06-14 12:50] VITALS: BP 140/87; BP_SYST 16
--- NOTE | 2024-06-14 13:51 | CON.MD ---
Medical Consultation
- -
Patient was seen in LDR today as follow up 48 hours after accidental dural puncture during placement of epidural. Patient endorsing severe neck and head pain with pressure sensation in ears 'like I'm ten feet under water'. Discussed epidural blood
patch risks/benefits including potential for repeat dural puncture. Patient agreeable to proceed with epidural blood patch.
She was brought over to PACU and monitors including BP, EKG, pulse ox were placed. Timeout performed and patient name, date of , and procedure confirmed. An 18g IV was placed in her right antecubital vein in sterile fashion under ultrasound
guidance. She was then placed in sitting position and epidural space accessed with 18g touhy needle using loss of resistance technique. 30cc autologous blood was drawn from the IV in sterile fashion. 24cc blood injected into epidural space and
patient endorsed immediate improvement in headache and neck pain. She was placed flat in supine position and instructed to remain on her back for two hours. Vital signs remained stable throughout and she was transferred back to the obstetric unit
in stable condition.
IV placed by Dr. Dillon Roa
Epidural blood patch performed by Dr. Yasmany Reyes
[2024-06-15] MEDS: TYLENOL 650 MG PO (03:07)
[2024-06-15] MEDS: MOTRIN 600 MG PO ×2 (03:07→09:46)
[2024-06-15] MEDS: PRENATAL PLUS PO (09:46)
[2024-06-15] MEDS: SENOKOT-S 1 TABLET PO (09:46)
[2024-06-15 11:54] LABS: Syphilis/T. pallidum Ab Reflex Negative (Negative)
== END 2024-06-15 13:20 | disposition home or self-care (01) | DRG 807 ==
LOC: LDRP 17:40
PROVIDERS: Obstetrics & Gynecology; ADMITTING PHYSICIAN Obstetrics & Gynecology; ATTENDING PHYSICIAN Obstetrics & Gynecology
PROC: 3E0P7VZ Introduction of Hormone into Female Reproductive, Via Natural or Artificial Opening (ICD-10-PCS; 2024-06-11)
PROC: 3E033VJ Introduction of Other Hormone into Peripheral Vein, Percutaneous Approach (ICD-10-PCS; 2024-06-11)
PROC: 10E0XZZ Delivery of Products of Conception, External Approach (ICD-10-PCS; 2024-06-11)
PROC: 0KQM0ZZ Repair Perineum Muscle, Open Approach (ICD-10-PCS; 2024-06-11)
PROC: 10907ZC Drainage of Amniotic Fluid, Therapeutic from Products of Conception, Via Natural or Artificial Opening (ICD-10-PCS; 2024-06-11)
DX: O14.14 Severe pre-eclampsia complicating childbirth (principal); Z37.0 Single live birth; O70.1 Second degree perineal laceration during delivery; Z3A.34 34 weeks gestation of pregnancy
CPT/HCPCS: 88307; 59025; 70544; 70549; 70553; 76815; 80053; 82570; 83735; 84156; 85027; 85610; 85730; 86780; 86850; 86900; 86901; 87070; 87491; 87591; 94640; A9585

== ENCOUNTER 2024-06-23 22:46 | Emergency (ER) | payer OTHER, SELFPAY ==
[2024-06-23 22:48] VITALS: BP 150/100
--- NOTE | 2024-06-23 23:07 | ED.GENMED ---
History of Present Illness
General
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
Source: patient
Exam Limitations: none
Time Seen by Provider: 06/23/24 22:55
History of Present Illness
History of Present Illness:
28-year-old female G3, P3 who just delivered 2 weeks ago prematurely secondary to preeclampsia presents with an hours worth of symptoms of epigastric abdominal pain head discomfort dizzy. She denies chest pain. She denies vision change. She
states the symptoms are very similar to when she had preeclampsia that forced her to deliver the baby. No prior history of hypertension. No other complaints at this time
Past History
Past History
ED Past Medical History: Asthma and Psychiatric (Anxiety)
ED Past Surgical History: Orthopedic
Social History
Tobacco: Non-smoker
Alcohol: None
Drug: None
Personal:
Living: with family
Employment: Employed
Family History
Family History: CAD and Other (Noncontributory)
Phy Exam
Physical Exam
Physical Exam:
General: Uncomfortable appearing female no acute respiratory distress
HEENT: Normocephalic atraumatic pupils equal round reactive to light
Heart: Tachycardic but regular
Lungs: Clear no wheeze
Neurologic: Alert and oriented normal gait conversing appropriately
Extremities: No cyanosis
Skin is warm no rash
Course
Orders/Labs/Results
Orders:
Orders
06/23/24 23:20
Urinalysis Reflex To Culture Urgent
Date Specimen was Collected: 06/23/24
Time Specimen was Collected: 23:19
Urine Microscopic Reflex Cult Urgent
Urine Culture Urgent
DEBRA Source: U
Specimen Description:
Date Specimen was Collected: 06/23/24
Time Specimen was Collected: 23:19
06/23/24 23:46
Add On- LAB Urgent
Tests Added?: lipase
Ketorolac [Toradol] 15 mg IV NOW STA
Ondansetron Injectable [Zofran] 4 mg IV NOW STA
06/23/24 23:54
Complete Blood Count/With Diff Urgent
Comprehensive Metabolic Panel Urgent
Lipase Urgent
06/24/24 00:00
US Abdomen Complete/Upper Urgent
Reason For Exam: upper abdominal pain
Abnormal Lab Results
06/23/24 06/23/24
23:20 23:54
WBC 16.3 H 10^3/uL
(4.8-10.8)
Hgb 11.8 L g/dL
(12.0-16.0)
Hct 35.7 L %
(37.0-47.0)
MCH 26.9 L pg
(27.0-31.0)
Plt Count 463 H 10^3/uL
(130-400)
Abs Immat Gran (auto) 0.1 H 10^3/uL
(0-0.05)
Absolute Neuts (auto) 10.8 H 10^3/uL
(1.4-6.5)
Absolute Lymphs (auto) 3.9 H 10^3/uL
(1.2-3.4)
Absolute Monos (auto) 1.1 H 10^3/uL
(0.1-0.6)
BUN 19 H mg/dl
(7-17)
Glucose 127 H mg/dl
(70-99)
AST 102 H U/L
(14-36)
ALT 51 H U/L
(0-35)
Ur Occult Blood Reflex 4+ A
(Negative)
Leukocyte Esterase Rfl 2+ A
(Negative)
Urine RBC 30-40 A /HPF
(0-2)
Urine WBC (Reflex) 16-20 A /HPF
(0-5)
Urine Bacteria (Reflex) Many A
(Negative)
06/23/24 23:54
06/23/24 23:54
Vital Signs
Initial and Last Documented VS:
Initial Vital Signs
Temp Pulse Resp BP Pulse Ox
98.9 F 124 28 150/100 98
06/23/24 22:48 06/23/24 22:48 06/23/24 22:48 06/23/24 22:48 06/23/24 22:48
Last Documented Vital Signs
Temp Pulse Resp BP Pulse Ox
98.9 F 74 13 116/70 99
06/23/24 22:48 06/24/24 01:00 06/24/24 01:00 06/24/24 01:00 06/24/24 01:00
MDM/Problems Addressed
Differential Diagnosis Includes:
Patient with epigastric discomfort. She is tender on exam. Neurologically intact. She is hypertensive at triage. History of preeclampsia symptoms similar to prior episode. She delivered 2 weeks ago. Will check urine and labs.
*Critical Care Note
Total Time (30-74mins, 75-104mins- exclusive of procedures): Not Applicable
Update Note
Update Note:
Patient reexamined and discussed directly with OB on-call who saw the patient. Ultrasound was ordered as demonstrated small gallstones in the gallbladder without secondary signs of cholecystitis. The common bile duct is slightly dilated at 7 8 mm
in diameter. Patient does admit to eating fried chicken prior to coming in. Unclear clinical picture given the phase with elevated blood pressure slightly elevated liver functions. Consider preeclampsia, help or common bile duct stone.
Gynecology has agreed to admit for further evaluation.
ED Attending Note
-
Portions of this chart may have been created with voice recognition software.� Occasional wrong word or��sound alike� substitutions may have occurred due to the inherent limitations of voice recognition software.
Discharge Plan
Departure
Patient Disposition: Admit
Date of Disposition: 06/24/24
Time of Disposition: 01:09
Presentation/result/management discussed w/ accepting MD/DO: yeh
Discharge Problem:
Abdominal pain
Prescriptions:
No Action
albuterol sulfate 90 mcg/actuation HFA aerosol inhaler
2 puff inhalation Q6H PRN (Reason: shortness of breath or wheezing) Qty: 6.7 0RF
Referrals:
Dottie Rodas MD [Family Provider] -
Interventions
Interventions:
*Risk Screen - Suicide Last Done: 06/23/24 22:48
*General Assessment Last Done: 06/23/24 23:10
*Neglect/Abuse Screening Last Done: 06/23/24 22:48
*ED COVID-19 Vaccine History Last Done: 06/23/24 23:10
ED-Female Genitourinary Assessment Last Done: 06/24/24 00:02
Discharge Date and Time
Print Language: [place]ET[place]ESE
[2024-06-23 23:09] VITALS: BP 128/85
[2024-06-23 23:10] VITALS: BP 128/85; BMI 48.2
[2024-06-23 23:51] LABS: Urine Albumin Trace (Neg - Trace); Urine Bilirubin Negative (Negative); Urine Character Slightly Cloudy (Clear); Urine Color Yellow; Urine Glucose Negative (Negative); Urine Ketone Negative (Negative); Urine Leukocyte 2+ (Negative); Urine Nitrite Negative (Negative); Urine Occult Blood 4+ (Negative); Urine Urobilinogen Negative (Neg - 1+)
[2024-06-23] MEDS: ZOFRAN 4 MG IV (23:55)
[2024-06-23] MEDS: TORADOL 15 MG IV (23:55)
[2024-06-24] VITALS: BP 93/78
[2024-06-24 00:04] VITALS: BP 94/62
[2024-06-24 00:04] LABS: % Basophils 0.6 % (0-2); % Eosinophils 2.9 % (0-6); % Immature Granulocytes 0.4 % (0-0.5); % Lymphocytes 23.6 % (20.5-51.1); % Monocytes 6.5 % (1.7-9.3); Absolute Basophils 0.1 10^3/uL (0-0.2); Absolute Eosinophils 0.5 10^3/uL (0-0.7); Absolute Immature Granulocytes 0.1 10^3/uL (0-0.05); Absolute Lymphocytes 3.9 10^3/uL (1.2-3.4); Absolute Monocytes 1.1 10^3/uL (0.1-0.6); Absolute Neutrophils 10.8 10^3/uL (1.4-6.5); Hematocrit 35.7 % (37.0-47.0); Hemoglobin 11.8 g/dL (12.0-16.0); Mean Corp Hgb Conc. 33.1 g/dL (33.0-37.0); Mean Corpuscular Hgb 26.9 pg (27.0-31.0); Mean Corpuscular Volume 81.5 fL (81.0-99.0); Mean Platelet Volume 10.2 fL (7.4-10.4); Nucleated Red Blood Cells % 0 %; Platelet Count 463 10^3/uL (130-400); Red Blood Cell Count 4.38 10^6/uL (4.20-5.40); Red Cell Dist. Width 13.6 % (11.5-14.5); White Blood Cell Count 16.3 10^3/uL (4.8-10.8)
[2024-06-24 00:22] LABS: ALT (SGPT) 51 U/L (0-35); AST (SGOT) 102 U/L (14-36); Albumin 3.7 g/dl (3.5-5.0); Alkaline Phosphatase 94 U/L (38-126); Blood Urea Nitrogen 19 mg/dl (7-17); Calcium 9.5 mg/dl (8.4-10.2); Carbon Dioxide 25 mmol/L (22-30); Chloride 103 mmol/L (98-107); Estimated Creatinine Clearance > 125 ml/min; Glucose 127 mg/dl (70-99); Lipase 166 U/L (23-300); Potassium 4.2 mmol/L (3.5-5.1); Sodium 141 mmol/L (135-145); Total Bilirubin 0.5 mg/dl (0.2-1.3); Total Protein 6.3 g/dl (6.3-8.2); eGFR > 60.00
[2024-06-24 00:52] LABS: Urine Amorphous Seen; Urine Bacteria Many (Negative); Urine Squamous Cell >30 /LPF (Few); Urine Urothelial Cell >30 /LPF (FEW)
[2024-06-24 00:53] LABS: Urine Red Blood Cell 30-40 /HPF (0-2); Urine White Cell 16-20 /HPF (0-5)
[2024-06-24 01:00] VITALS: BP 116/70
== END 2024-06-24 01:24 | disposition still patient (30) ==
LOC: EMR 22:46
PROVIDERS: Physician Assistant; EMERGENCY PHYSICIAN Emergency Medicine; FAMILY PHYSICIAN Family Medicine
DX: O99.63 Diseases of the digestive system complicating the puerperium (principal); K80.20 Calculus of gallbladder without cholecystitis without obstruction; R10.13 Epigastric pain
CPT/HCPCS: 99284; 96374; 96375; 76700; 80053; 81003; 81015; 83690; 85025; 87086

== ENCOUNTER 2024-06-24 01:37 | Inpatient (IN) | payer OTHER, SELFPAY ==
[2024-06-24 01:44] VITALS: BP 101/60; BMI 48.3
[2024-06-24] MEDS: LR 1000 IV (02:05)
[2024-06-24] MEDS: MAGNESIUM SULFATE 100 IV (02:06)
[2024-06-24] MEDS: MAGNESIUM SULFATE 40 GRAM 1000 IV (02:28)
[2024-06-24] MEDS: TYLENOL 1000 MG PO (02:32)
[2024-06-24] MEDS: PROTONIX 40 MG PO (04:08)
[2024-06-24] MEDS: TORADOL 15 MG IV (06:56)
[2024-06-24 09:22] LABS: % Basophils 0.6 % (0-2); % Eosinophils 0.8 % (0-6); % Immature Granulocytes 0.2 % (0-0.5); % Lymphocytes 14.6 % (20.5-51.1); % Monocytes 7.5 % (1.7-9.3); % Neutrophils 76.3 % (42.2-75.2); Absolute Basophils 0.1 10^3/uL (0-0.2); Absolute Eosinophils 0.1 10^3/uL (0-0.7); Absolute Lymphocytes 1.7 10^3/uL (1.2-3.4); Absolute Monocytes 0.9 10^3/uL (0.1-0.6); Absolute Neutrophils 8.7 10^3/uL (1.4-6.5); Hematocrit 35.6 % (37.0-47.0); Hemoglobin 11.9 g/dL (12.0-16.0); Mean Corp Hgb Conc. 33.4 g/dL (33.0-37.0); Mean Corpuscular Hgb 27.3 pg (27.0-31.0); Mean Corpuscular Volume 81.7 fL (81.0-99.0); Mean Platelet Volume 10.3 fL (7.4-10.4); Nucleated Red Blood Cells % 0 %; Platelet Count 460 10^3/uL (130-400); Red Blood Cell Count 4.36 10^6/uL (4.20-5.40); Red Cell Dist. Width 13.6 % (11.5-14.5); White Blood Cell Count 11.3 10^3/uL (4.8-10.8)
[2024-06-24 10:15] LABS: ALT (SGPT) 317 U/L (0-35); AST (SGOT) 508 U/L (14-36)
--- NOTE | 2024-06-24 10:38 | CON.GI ---
Consultation
-
Date/Time Consultation Requested: 06/24/24
Date/Time Consultation Performed: 06/24/24
Requesting Provider: Radha Choudhury
Performing Provider: Ebonie Miller
Reason for Consultation: Elevated LFTs, epigastric pain
Medical History
Chief Complaint / HPI
Chief Complaint: epigastric pain
History of Present Illness:
Daniella is a 28-year-old female with past medical history of recent delivery, prematurely 2 weeks ago secondary to preeclampsia who was discharged now returns with worsening epigastric pain and dizziness, found to have worsening LFTs. She was
admitted to the OB service, started on a mag drip for treatment of preeclampsia, BP 150/100mmHg on arrival. She reports these are very similar symptoms to what brought her in to the hospital prior to her induced labor for preeclampsia.
She does not to eating fried chicken prior to onset of worsening pain and return to the hospital. She reports having intermittent epigastric pain in the weeks leading up to her delivery, typically postprandial. No issues like this in her prior 2
pregnancies. She reports at 8 AM the pain she was having resolved, feels well at this time. Denies any excessive tylenol or NSAID use. Reports her sister had issues with her gallbladder. No family history of liver disease.
WBC 16.3 --> 11.3, Hgb 11.9, Plt 460
LFTs on 06/14 (discharge): Tbili 0.3, AST 25, ALT 47, Alk phos 132
LFTs on readmission (06/23): Tbili 0.5, AST 102, ALT 51, Alk phos 94
LFTs today (06/24): AST 508, ALT 317
Abdominal ultrasound: The liver is mildly enlarged at 18.2 cm with smooth capsular contour and homogenous relative diffuse increased echogenicity. The gallbladder contains some tiny stones without gallbladder wall thickening. No findings to
suggest intrahepatic biliary ductal dilatation. The common bile duct is mildly enlarged at 0.7 to 0.8 cm. No definitive ductal calculus. The visualized portions of the head and body of the pancreas demonstrate no focal abnormality.
Past Medical History
Past Medical History: Other (Migraines, anxiety, depression, asthma)
Past Surgical History: Other (Carpal tunnel release)
Social History
Tobacco: Non-Smoker
Alcohol: None
Drug: None
Personal:
Living: With Family
Family History
Family History: Reviewed & Not Pertinent
Allergies / Home Medications
Allergy/AdvReac Type Severity Reaction Status Date / Time
No Known Allergies Allergy Verified 06/24/24 01:48
�Medication �Instructions �Recorded
albuterol sulfate 90 mcg/actuation 2 puff inhalation Q6H PRN 12/09/23
aerosol inhaler shortness of breath or wheezing
#6.7 grams
Review of Systems
-
History Source: Patient
All other systems: A 12 pt ROS was Negative except as stated above in HPI
Vital Signs
Temp Pulse Resp BP Pulse Ox
98.3 F 76 18 101/60 97
06/24/24 01:44 06/24/24 01:44 06/24/24 01:44 06/24/24 01:44 06/24/24 01:44
Physical Exam
Exam
General: Well Developed, Well Nourished, No Apparent Distress and Comfortable
GI: Soft, Non Tender, Non Distended and Normal Bowel Sounds
Results
WBC 11.3 10^3/uL (4.8-10.8) H 06/24/24 08:31
Hgb 11.9 g/dL (12.0-16.0) L 06/24/24 08:31
Hct 35.6 % (37.0-47.0) L 06/24/24 08:31
MCV 81.7 fL (81.0-99.0) 06/24/24 08:31
Plt Count 460 10^3/uL (130-400) H 06/24/24 08:31
Absolute Neuts (auto) 8.7 10^3/uL (1.4-6.5) H 06/24/24 08:31
AST 508 U/L (14-36) H* 06/24/24 08:31
ALT 317 U/L (0-35) H 06/24/24 08:31
Diagnostic Image Results:
Prior GI Procedures:
EGD:
Colonoscopy:
Assessment / Plan
-
28 y.o. female with recent premature delivery for preeclampsia, readmitted with epigastric discomfort found to have worsening LFTs, restarted on magnesium gtt for possible preeclampsia.
I feel HELLP and Preeclampsia are low on the differential for etiologies of her elevated liver enzymes, as lack of supporting labs and exam. Intrahepatic cholestasis of can cause significant elevations in transminases, however, really only
having abdominal pain, which has quickly resolved. No clear precipitating insult from time of discharge to readmission (i.e. tylenol, nsaids, high risk behavior) to cause worsening liver enzymes. Acute Fatty liver of (AFLP) can be seen
post- and manifest with very vague symptoms, ~50% will have concomitant preeclampsia. If we take her admitting WBC into account, she does meet at least 3 of the [place] criteria. Repeat WBC 11.3 this morning. No evidence of kidney injury or
hypoglycemia, so, very low suspicion for this.
#Elevated LFTs-- hepatocellular pattern, though, only transaminases repeated today
-given intermittent epigastric pain over the last month, suspicious for symptomatic cholelithiasis
-Abdominal US- evidence of cholelithiasis without gallbladder wall thickening or pericholecystic fluid; mildly dilated common bile duct without evidence of definitive calculus
-Plts nml, no evidence of schistocytes on peripheral smear, INR last checked on 06/12 which was nml glucose
-recommend MRI/MRCP to further evaluate-- patient is very reluctant due to claustrophobia, and does not wish to receive any sedative and also needs to get home for childcare reasons
-repeat PM labs, if LFTs have improved now that her pain has resolved, can defer MRI to outpatient. If alk phos worsening, will check bile acids.
Data Reviewed
-
Radiology: Report Reviewed by me
Ultrasound: Report Reviewed by me
-
-
Thank you for consultation and allowing me to participate in the patient's care. Please call the [facility] physician during the after hours with any questions or concerns.
[2024-06-24 11:35] LABS: Normal RBC Morphology Yes
[2024-06-24] MEDS: LR IV (17:56)
[2024-06-24 19:27] LABS: % Basophils 0.8 % (0-2); % Eosinophils 2.5 % (0-6); % Immature Granulocytes 0.3 % (0-0.5); % Lymphocytes 29.3 % (20.5-51.1); % Monocytes 8.6 % (1.7-9.3); % Neutrophils 58.5 % (42.2-75.2); Absolute Basophils 0.1 10^3/uL (0-0.2); Absolute Eosinophils 0.2 10^3/uL (0-0.7); Absolute Lymphocytes 2.7 10^3/uL (1.2-3.4); Absolute Monocytes 0.8 10^3/uL (0.1-0.6); Absolute Neutrophils 5.4 10^3/uL (1.4-6.5); Hematocrit 35.9 % (37.0-47.0); Hemoglobin 12.1 g/dL (12.0-16.0); Mean Corp Hgb Conc. 33.7 g/dL (33.0-37.0); Mean Corpuscular Hgb 27.1 pg (27.0-31.0); Mean Corpuscular Volume 80.5 fL (81.0-99.0); Mean Platelet Volume 10.1 fL (7.4-10.4); Nucleated Red Blood Cells % 0 %; Platelet Count 439 10^3/uL (130-400); Red Blood Cell Count 4.46 10^6/uL (4.20-5.40); Red Cell Dist. Width 13.7 % (11.5-14.5); White Blood Cell Count 9.2 10^3/uL (4.8-10.8)
[2024-06-24 19:38] LABS: INR 0.97; PT 12.7 Sec (11.4-14.6)
[2024-06-24 20:08] LABS: ALT (SGPT) 634 U/L (0-35); Acetaminophen < 10 ug/ml (10-30); Albumin 3.9 g/dl (3.5-5.0); Alkaline Phosphatase 206 U/L (38-126); Blood Urea Nitrogen 14 mg/dl (7-17); Calcium 7.7 mg/dl (8.4-10.2); Carbon Dioxide 25 mmol/L (22-30); Chloride 104 mmol/L (98-107); Creatine Phosphokinase 50 U/L (30-135); Estimated Creatinine Clearance > 125 ml/min; GGTP 374 U/L (12-43); Glucose 92 mg/dl (70-99); Salicylate < 1.0 mg/dl (2.0-20.0); Sodium 139 mmol/L (135-145); Total Bilirubin 2.6 mg/dl (0.2-1.3); Total Protein 6.8 g/dl (6.3-8.2); eGFR > 60.00
[2024-06-24 20:27] LABS: AST (SGOT) 960 U/L (14-36)
[2024-06-25 08:46] LABS: % Eosinophils 4.4 % (0-6); % Immature Granulocytes 0.2 % (0-0.5); % Lymphocytes 24.3 % (20.5-51.1); % Monocytes 5.4 % (1.7-9.3); % Neutrophils 64.7 % (42.2-75.2); Absolute Basophils 0.1 10^3/uL (0-0.2); Absolute Eosinophils 0.4 10^3/uL (0-0.7); Absolute Lymphocytes 2.1 10^3/uL (1.2-3.4); Absolute Monocytes 0.5 10^3/uL (0.1-0.6); Absolute Neutrophils 5.6 10^3/uL (1.4-6.5); Hematocrit 39.7 % (37.0-47.0); Mean Corp Hgb Conc. 32.7 g/dL (33.0-37.0); Mean Corpuscular Hgb 26.9 pg (27.0-31.0); Mean Corpuscular Volume 82.2 fL (81.0-99.0); Nucleated Red Blood Cells % 0 %; Platelet Count 434 10^3/uL (130-400); Red Blood Cell Count 4.83 10^6/uL (4.20-5.40); Red Cell Dist. Width 13.9 % (11.5-14.5); White Blood Cell Count 8.7 10^3/uL (4.8-10.8)
[2024-06-25 08:54] LABS: INR 1.01; PT 13.1 Sec (11.4-14.6)
[2024-06-25 09:02] LABS: ALT (SGPT) 717 U/L (0-35); AST (SGOT) 707 U/L (14-36); Albumin 3.9 g/dl (3.5-5.0); Alkaline Phosphatase 293 U/L (38-126); Blood Urea Nitrogen 11 mg/dl (7-17); Calcium 8.3 mg/dl (8.4-10.2); Carbon Dioxide 26 mmol/L (22-30); Chloride 107 mmol/L (98-107); Estimated Creatinine Clearance > 125 ml/min; Glucose 100 mg/dl (70-99); Potassium 4.6 mmol/L (3.5-5.1); Sodium 143 mmol/L (135-145); Total Bilirubin 1.6 mg/dl (0.2-1.3); Total Protein 6.6 g/dl (6.3-8.2); eGFR > 60.00
--- NOTE | 2024-06-25 10:08 | W.PN.GI.CBS2 ---
Today's Communication / Plan
-
MRI/MRCP, possible d/c following pending results
Assessment / Plan
-
28 y.o. female with recent premature delivery for preeclampsia, readmitted with epigastric discomfort found to have worsening LFTs, restarted on magnesium gtt for possible preeclampsia.
I feel HELLP and Preeclampsia are low on the differential for etiologies of her elevated liver enzymes, as lack of supporting labs and exam. Intrahepatic cholestasis of can cause significant elevations in transminases, however, really only
having abdominal pain, which has quickly resolved. No clear precipitating insult from time of discharge to readmission (i.e. tylenol, nsaids, high risk behavior) to cause worsening liver enzymes. Acute Fatty liver of (AFLP) can be seen
post- and manifest with very vague symptoms, ~50% will have concomitant preeclampsia. If we take her admitting WBC into account, she does meet at least 3 of the [place] criteria. Repeat WBC normal x2. No evidence of kidney injury or
hypoglycemia, so, very low suspicion for this.
LFTs:
Tbili 0.5 --> 2.6 --> 1.6
GGT 374
AST 102 --> 508 --> 960 --> 707
ALT 47 --> 51 --> 634 --> 717
Alk phos 94 --> 206 --> 293
#Elevated LFTs-- hepatocellular pattern
-given intermittent epigastric pain over the last month, suspicious for symptomatic cholelithiasis with possible choledocholithiasis
-Abdominal US- evidence of cholelithiasis without gallbladder wall thickening or pericholecystic fluid; mildly dilated common bile duct without evidence of definitive calculus
-Plts nml, no evidence of schistocytes on peripheral smear, INR last checked on 06/12 which was nml glucose
-recommend MRI/MRCP to further evaluate--encouraging improving in AST and Tbili, with mild worsening of ALT; coags and platelets remain normal
-hepatitis serologies, ceruloplasmin, ASMA pending
Given improvement in LFTs this morning, if MRI/MRCP unremarkable, okay for discharge later today with repeat labs in 1 week and outpatient follow-up.
Subjective
Subjective
Date of Service: June 25, 2024
Patient seen in follow-up this morning. She is quite tearful, eager for discharge. She is asymptomatic, now off of the magnesium drip. Offers no complaints. Worsening LFTs noted on PM labs, awaiting AM labs.
Objective
Data Reviewed
Laboratory Data:
Laboratory Results
06/25/24 08:25
06/25/24 08:25
Laboratory Results
PT 13.1 Sec (11.4-14.6) 06/25/24 08:25
INR 1.01 06/25/24 08:25
Total Bilirubin 1.6 mg/dl (0.2-1.3) H D 06/25/24 08:25
AST 707 U/L (14-36) H* 06/25/24 08:25
ALT 717 U/L (0-35) H* 06/25/24 08:25
Alkaline Phosphatase 293 U/L (38-126) H 06/25/24 08:25
Vital Signs and I&O:
Vital Signs
Temp Pulse Resp BP Pulse Ox
98.3 F 76 18 101/60 97
06/24/24 01:44 06/24/24 01:44 06/24/24 01:44 06/24/24 01:44 06/24/24 01:44
Physical Exam
Physical Exam
HEENT: Anicteric and Moist mucous membranes
GI: Soft, Distended, Non Distended and Normal Bowel Sounds
--- NOTE | 2024-06-25 13:42 | W.DS.TRANS ---
DC Summary - [employer]
-
Discharge Instructions:
Discharge Diagnosis/Procedures cholelithiasis
Diet Low Fat
Activity No restrictions
Driving Restrictions As prior to admission
Instructions:
Stand-Alone Forms:
Changes to Home Medications: No
Discharge Medications:
DC Medications w/original date entered in [employer]
albuterol sulfate 90 mcg/actuation aerosol inhaler 2 puff inhalation Q6H PRN shortness of breath or wheezing #6.7 grams 12/09/23
Home Medication Changes
Pending Results: Yes
Additional Pending Results:
GI labs
Total time spent discharging patient (in min): 30
--- NOTE | 2024-06-25 14:17 | W.DCSUMMARY ---
Discharge Summary
Discharge Data
Date of Admission: 06/24/24
Date of Discharge: 06/25/24
Total time spent discharging patient (in min): 30
-
Pending Results: Yes
Additional Pending Results:
GI labs
Hospital Course
Patient is a 28yo who presented to the ED on 06/24 with complaints of epigastric pain after eating fried chicken. She is s/p with IOL for preeclampsia w/ SF on 06/12. On evaluation, patient was found to have severe range LFTs. She was given
12 hours of magnesium. LFTs continued to increase and GI was consulted. MRI and MRCP were completed which revealed cholelithiasis with gallbladder wall thickening and MRCP with no evidence of choledocholithiasis. Patient had resolution of her
symptoms and after discussion with GI patient was deemed stable for discharge home for follow up in one week with repeat LFTs. Discharge instructions and return precautions were discussed with patient and all questions answered prior to discharge.
Discharge Plan
-
Patient Disposition: Home (Routine Discharge)
Discharge Diagnosis/Procedures: cholelithiasis
Condition: Good
Diet: Low Fat
Activity: No restrictions
Driving Restrictions: As prior to admission
Referrals:
UNKNOWN - PT NOT,INTERVIEWE [Family Provider] -
Additional Discharge Medication Instructions: follow up with Dr. Miller (GI) with repeat liver function tests in one week
Prescriptions:
Continued
albuterol sulfate 90 mcg/actuation HFA aerosol inhaler
2 puff inhalation Q6H PRN (Reason: shortness of breath or wheezing) Qty: 6.7 0RF
Discharge Orders:
Discharge Patient (As Directed); Ordered 06/25/24
Ordered By: Gali Linton
Discharge Date and Time
Print Language: [place]
[2024-06-25 21:13] LABS: Hepatitis B Surface Antigen Negative (Negative)
[2024-06-25 21:30] LABS: Hepatitis C Antibody Negative (Negative)
[2024-06-25 23:44] LABS: Hepatitis A IgM Antibody Negative (Negative); Hepatitis B Core Ab, IgM Negative (Negative)
[2024-06-26 17:34] LABS: Ceruloplasmin 44 mg/dL (16-45)
[2024-06-27 03:08] LABS: HSV 1/2 Combined Screen, IgG 1.14 IV
[2024-06-27 05:32] LABS: F-Actin Antibody IgG 7 Units (0-19)
[2024-06-27 07:08] LABS: HSV 1 Glycoprotein G Ab, IgG 0.08 IV (<=0.89); HSV 2 Glycoprotein G Ab, IgG 0.04 IV (<=0.89)
== END 2024-06-25 14:00 | disposition home or self-care (01) | DRG 776 ==
LOC: LDRP 01:37
PROVIDERS: ADMITTING PHYSICIAN Obstetrics & Gynecology; CONSULT PHYSICIAN Internal Medicine
DX: O99.63 Diseases of the digestive system complicating the puerperium (principal); K80.20 Calculus of gallbladder without cholecystitis without obstruction
CPT/HCPCS: 74183; 80053; 80143; 80179; 82390; 82550; 82977; 83605; 84450; 84460; 85025; 85610; 86015; 86694; 86705; 86709; 86803; 87340; A9575